=== PATIENT | male | born 1955 | race Caucasian/White ===

== ENCOUNTER → 2016-08-25 19:18 | Outpatient (CLI) | payer BC ==
[2015-11-05 08:26] VITALS: BMI 33.5
[~2016-08-25 19:18] MED LIST: ASTELIN137 MCG NS; BAYER CHEWABLE81 MG PO; CELEXA20 MG PO; CLARITIN 10 MG10 MG PO; COREG 3.1253.125 MG PO; ELIQUIS5 MG PO; GLUCOPHAGE1000 MG PO; LOPRESSOR25 MG PO; MOEXIPRIL 15 MG PO; MOEXIPRIL HCL15 M1 PO; NORCO 10/325 TA1 TA1 PO; NOVOLIN 70/30 110 ML SC; NOVOLIN 70/30 110 ML SQ; PLAVIX75 MG PO; ZOCOR40 MG PO; ZOCOR80 MG PO
== END | disposition home or self-care (01) ==
LOC: D.SLEEP 19:18
DX: G47.33 Obstructive sleep apnea (adult) (pediatric) (principal)

== ENCOUNTER 2019-10-30 16:29 | Inpatient (IN) | payer OTHER ==
[~2019-10-30] VITALS: Ht 180.3 cm; Wt 108.5 kg
--- NOTE | 2019-10-30 18:14 | NUR ---
PT REPORTS HE HAS NOT ATE IN APPROX 5 DAYS. INSULIN NOT GIVEN AT THIS, PER PATIENT.
--- NOTE | 2019-10-30 19:06 | NUR ---
REPORT TO SHERRI PERALTA
[2019-10-30 19:22] LABS: APTT 32.4 SECONDS (22.8-39.4); INR 1.1 (0.85-1.17); PROTIME 14.2 SECONDS (11.6-15.0)
[2019-10-30 19:23] LABS: D-DIMER-QUANTITATIVE 0.71 ug/mLFEU (0.20-0.54)
[2019-10-30 20:00] VITALS: BP 128/53
[2019-10-30 22:22] VITALS: BP 152/76; BMI 33.4
[2019-10-30 22:38] LABS: BILIRUBIN NEGATIVE (NEGATIVE); KETONE MODERATE mg/dL (NEGATIVE); NITRITE NEGATIVE (NEGATIVE); UROBILINOGEN NORMAL mg/dL (< 2)
--- NOTE | 2019-10-30 22:39 | NUR ---
PATIENT TO THE FLOOR, ABLE TO AMBULATE ON HIS OWN, PATIENT ON ROOM AIR, A&O X4. NO NEEDS VOICED AT THIS TIME. CALL LIGHT WITHIN REACH AND BED IN LOWEST LOCKED POSITION.
[2019-10-31 04:00] VITALS: BP 143/95
[2019-10-31 06:35] LABS: BASOPHILS 0 % (0-2); EOSINOPHILS 0 % (0-7); HEMATOCRIT 39.3 % (42.0-54.0); HEMOGLOBIN 12.6 g/dL (13.5-17.5); IMMATURE GRANULOCYTES 0.2 % (0-5); LYMPHOCYTES 6.4 % (15-50); MCHC 32.1 g/dL (31.0-37.0); MCV 93.6 fL (80.0-100.0); MEAN PLATELET VOLUME 10.5 fL (7.4-10.4); MONOCYTES 6.4 % (2-11); RDW 13.2 % (11.5-14.5); WBC 9.9 10x3/uL (4.8-10.8)
[2019-10-31 06:56] LABS: PLATELET COUNT 162 10x3/uL (130-400)
[2019-10-31 06:59] LABS: ALBUMIN 3.4 g/dL (3.4-5.0); ANION GAP 15.1 mmol/L (8-16); BILIRUBIN - TOTAL 0.84 mg/dL (0.2-1.3); CALCIUM 8.6 mg/dL (8.5-10.1); CARBON DIOXIDE 24.8 mmol/L (21.0-32.0); CREATININE - SERUM 1.6 mg/dL (0.6-1.3); POTASSIUM - SERUM 4.9 mmol/L (3.5-5.1); PROTEIN - SERUM 6.4 g/dL (6.4-8.2)
[2019-10-31 07:00] LABS: MAGNESIUM - SERUM 1.9 mg/dL (1.8-2.4)
[2019-10-31 08:09] VITALS: BP 140/63
--- NOTE | 2019-10-31 10:33 | NUR ---
I have reviewed this patient and I concur with the Shift Assessment completed by the Licensed Practical Nurse today this shift.
--- NOTE | 2019-10-31 11:22 | NUR ---
SPOKE WITH CHERIE METZGER ABOUT RESTARTING HOME MEDS AND HE STATES HE WILL LOOK AT THEM. I VERBALIZED UNDERSTANDING.
--- NOTE | 2019-10-31 11:24 | NUR ---
CHERIE METZGER STATES TO ME TO KEEP PT ON TELEMTRY FOR NOW.
[2019-10-31 11:39] VITALS: BP 141/55
[2019-10-31 11:45] LABS: C-REACTIVE PROTEIN 12.4 mg/dL (0.0-0.9)
[2019-10-31] MEDS ORDERED: LIPITOR40 MG PO (11:48)
[2019-10-31] MEDS ORDERED: CANDESARTAN PO (11:49)
[2019-10-31] MEDS ORDERED: ZYRTEC10 MG PO (11:50)
[2019-10-31] MEDS ORDERED: COREG6.25 MG PO (11:50)
[2019-10-31] MEDS ORDERED: CARDURA4 MG PO (11:50)
[2019-10-31] MEDS ORDERED: FLUTICASONE PRO16 GM NASAL (11:51)
[2019-10-31] MEDS ORDERED: CENTRUM MEN'S1 EACH PO (11:53)
[2019-10-31] MEDS ORDERED: GLIMEPIRIDE2 MG PO (11:54)
[2019-10-31 14:54] VITALS: Ht 180.3 cm; Wt 108.5 kg
--- NOTE | 2019-10-31 15:21 | NUR ---
PT ASKING ABOUT HOME MEDS BEING RESTARTED. CALLED AND SPOKE WITHCHERIE METZGER AND HE STATES HE KNOWS.
[2019-10-31 16:20] VITALS: BP 143/53
--- NOTE | 2019-10-31 19:50 | NUR ---
REPORT RECIEVED AND ROUNDING COMPLETE. PATIENT SITTING IN BED SIDE CHAIR WATCHING TV, SERGIONET ASKING TO TAKE A SHOWER, ABX ALMOST FINISHED AND PATIENT IS SET UP FOR A SHOWER. PATIENT HAS A LEFT FOREARM PATENT AND RUNNING FLUIDS PATIENT HAS ASKED FOR PIV TO BE MOVED TO ANOTHER LOCATION BECAUSE THIS PIV WONT STOP BEEPING. TOLD PATIENT THAT ONCE HE IS OUT OF THE SHOWER WE WILL LOOK AT IT. NO DISTRESS NOTED. PATIENT HAS A PRODUCTIVE COUGH WITH WHITE/CLEAR SPUTUM. PATIENT STATES HE HAS NO NEEDS AT THIS TIME. CALL LIGHT WITHIN REACH AND BED IN LOWEST LOCKED POSITION.
[2019-10-31 20:00] VITALS: BP 132/67
[2019-11-01 04:00] VITALS: BP 120/56
[2019-11-01 06:30] LABS: BASOPHILS 0 % (0-2); EOSINOPHILS 0 % (0-7); HEMATOCRIT 35.7 % (42.0-54.0); HEMOGLOBIN 11.6 g/dL (13.5-17.5); IMMATURE GRANULOCYTES 0.2 % (0-5); LYMPHOCYTES 6.4 % (15-50); MCH 29.8 pg (26.0-34.0); MCHC 32.5 g/dL (31.0-37.0); MCV 91.8 fL (80.0-100.0); MEAN PLATELET VOLUME 11.1 fL (7.4-10.4); NEUTROPHILS 86.4 % (40-80); RBC 3.89 10x6/uL (4.20-6.10); RDW 12.9 % (11.5-14.5); WBC 12.1 10x3/uL (4.8-10.8)
[2019-11-01 06:38] LABS: PLATELET COUNT 196 10x3/uL (130-400)
[2019-11-01 06:48] LABS: ALBUMIN 3.2 g/dL (3.4-5.0); ANION GAP 15.8 mmol/L (8-16); BILIRUBIN - TOTAL 0.4 mg/dL (0.2-1.3); CALCIUM 8.5 mg/dL (8.5-10.1); CARBON DIOXIDE 22.9 mmol/L (21.0-32.0); CREATININE - SERUM 1.5 mg/dL (0.6-1.3); MAGNESIUM - SERUM 1.9 mg/dL (1.8-2.4); POTASSIUM - SERUM 4.7 mmol/L (3.5-5.1)
--- NOTE | 2019-11-01 07:15 | NUR ---
RECEIVE SHIFT REPORT. RESTING IN BED WITH TV ON. DENIES ANY NEEDS AT THIS TIME. WILL CONTINUE PLAN OF CARE AND SAFETY PRECAUTIONS.
[2019-11-01 09:14] VITALS: BP 138/60
[2019-11-01] MEDS ORDERED: ZITHROMAX 500M500 MG PO (12:07)
[2019-11-01] MEDS ORDERED: DECADRON4 MG PO (12:09)
--- NOTE | 2019-11-01 14:16 | MORECARE ---
CASE MANAGEMENT DISCHARGE SUMMARY PATIENT: MINNIE VELAZQUEZ JR UNIT: [id number] ADM DATE: 10/30/19 AGE: 64 : 59 SEX: M ROOM/BED: D.2131 AUTHOR: JUANJO AVILES PHYSICIAN: REFERRING PHYSICIAN: MARIA ISABEL MESA DO DATE OF SERVICE: 11/01/19 Discharge Plan Patient Name: MINNIE VELAZQUEZ [facility] [facility] 1955 Planned Disposition: Home Anticipated Discharge Date: 11/01/19 Discharge Date: Expected LOS: 2 Initial Reviewer: [email or web address] Initial Review Date: 10/30/2019 Generated: 11/01/19 3:16 pm DCPIA - Discharge Planning Initial Assessment Updated by [email or web address]: Roddy Merritt on 11/01/19 2:16 pm * Is the patient Alert and Oriented? Yes * How many steps to enter\exit or inside your home? 3/0 * PCP Dr. Mesa * Pharmacy [facility] in [place] * Preadmission Environment Home with Family * ADLs Independent * Equipment None * Other Equipment N/A * List name and contact numbers for known caregivers / representatives who currently or will assist patient after discharge: AZALEA VELAZQUEZ - [phone] * Verbal permission to speak to the caregivers and representatives has been obtained from the patient. Yes * Community resources currently utilized None * Please name any agencies selected above. n/a * Additional services required to return to the preadmission environment? No * Can the patient safely return to the preadmission environment? Yes * Has this patient been hospitalized within the prior 30 days at any hospital? No Patient Name: MINNIE VELAZQUEZ Page [id number] at 1416 All edits/amendments must be made on the electronic document DICTATION DATE: 11/01/19 141 CAMP NURSE: HA 11/01/19 1416 RPT#: [id number] DC DATE: STATUS: ADM IN [facility] [address] [place] [address] END OF REPORT
--- NOTE | 2019-11-01 14:24 | MORECARE ---
CASE MANAGEMENT DISCHARGE SUMMARY PATIENT: MINNIE VELAZQUEZ JR UNIT: [id number] ADM DATE: 10/30/19 AGE: 64 : 59 SEX: M ROOM/BED: D.2131 AUTHOR: JUANJO AVILES PHYSICIAN: REFERRING PHYSICIAN: MARIA ISABEL MESA DO DATE OF SERVICE: 11/01/19 Discharge Plan Patient Name: MINNIE VELAZQUEZ Facility: [facility]:[place] : 1955 Planned Disposition: Home Anticipated Discharge Date: 11/01/19 Discharge Date: Expected LOS: 2 Initial Reviewer: BELLA Initial Review Date: 10/30/2019 Generated: 11/01/19 3:23 pm Comments DCP- Discharge Planning Updated by BELLA: Roddy Merritt on 11/01/19 1:[address] Patient Name: MINNIE VELAZQUEZ Admission Status: ER Accout number: [id number] Admission Date: 10-30-2019 : 1955 Admission Diagnosis:COVID-19 Attending: MARIA ISABEL MESA Current LOS: 2 Anticipated DC Date: 11-01-2019 Planned Disposition: Home Primary Insurance: [facility] Discharge Planning Comments: CM met with patient via telephone per current COVID protocols to complete initial dc planning assessment. CM educated patient on the CM role and verbal consent given by patient to complete assessment. CM verified patient's address, phone number, and emergency contact phone numbers. Patient lives at home with family and his spouse, Saima ([phone]). At discharge patient plans to return home and feels this is a safe discharge. Patient stated that he has 3 steps to navigate to enter the home and it is safe. Patient fills his medications at [facility] in [place]. CM discussed availability of home health, rehab services, and medical equipment. Patient states that the he is independent with his ADLs and has no Lower level care needs at this time. Patient refused HH, DME, SNF, and IPR. Transportation provider at discharge will be with his spouse, Saima. CM will continue to follow and will assist as needed with dc plans/needs. Cover Stitch Machine Operator: Roddy Merritt DCPIA - Discharge Planning Initial Assessment Updated by [email or web address]: Roddy Merritt on 11/01/19 2:16 pm * Is the patient Alert and Oriented? Yes * How many steps to enter\exit or inside your home? 3/0 * PCP Dr. Mesa * Pharmacy [facility] in [place] * Preadmission Environment Home with Family * ADLs Independent * Equipment None * Other Equipment N/A * List name and contact numbers for known caregivers / representatives who currently or will assist patient after discharge: SAIMA VELAZQUEZ - [phone] * Verbal permission to speak to the caregivers and representatives has been obtained from the patient. Yes * Community resources currently utilized None * Please name any agencies selected above. n/a * Additional services required to return to the preadmission environment? No * Can the patient safely return to the preadmission environment? Yes * Has this patient been hospitalized within the prior 30 days at any hospital? No Last DP export: 11/01/19 1:16 p Patient Name: MINNIE VELAZQUEZ Page [id number] at 1424 All edits/amendments must be made on the electronic document DICTATION DATE: 11/01/19 142 MANAGER CONTACT: HA 11/01/19 142 RPT#: [id number] DC DATE: STATUS: ADM IN [facility] [address] [place] [address] END OF REPORT
[2019-11-01] MEDS ORDERED: ZITHROMAX500 MG PO (14:53)
--- NOTE | 2019-11-01 15:28 | NUR ---
D/C LEFT FOREARM IV, TIP INTACT. DISCHARGE INSTRUCTIONS GIVEN VERBALLY AND HANDOUTS PROVIDED. SPOKE WITH SPOUSE WHO IS APPROX 30 MINUTES AWAY. WILL TAKE DOWN TO ED ENTRANCE VIA WHEELCHAIR UPON ARRIVAL.
--- NOTE | 2019-11-01 15:58 | NUR ---
WHEELED DOWN TO ED ENTRANCE TO MEET SPOUSE. REMAINS FREE FROM INJURY.
--- NOTE | 2019-11-02 09:39 | MORECARE ---
CASE MANAGEMENT DISCHARGE SUMMARY PATIENT: MINNIE VELAZQUEZ JR UNIT: [id number] ADM DATE: 10/30/19 AGE: 64 : 59 SEX: M ROOM/BED: D.2131 AUTHOR: JUANJO AVILES PHYSICIAN: REFERRING PHYSICIAN: MARIA ISABEL MESA DO DATE OF SERVICE: 11/02/19 Discharge Plan Patient Name: MINNIE VELAZQUEZ Facility: [facility]:[place] : 1955 Planned Disposition: Home Anticipated Discharge Date: 11/01/19 Discharge Date: 11/01/2019 Expected LOS: 2 Initial Reviewer: BELLA Initial Review Date: 10/30/2019 Generated: 11/02/19 10:39 am Comments DCP- Discharge Planning Updated by [email or web address]: Roddy Merritt on 11/01/19 1:[address] Patient Name: MINNIE VELAZQUEZ Admission Status: ER Accout number: [id number] Admission Date: 10-30-2019 : 1955 Admission Diagnosis:COVID-19 Attending: MARIA ISABEL MESA Current LOS: 2 Anticipated DC Date: 11-01-2019 Planned Disposition: Home Primary Insurance: [facility] Discharge Planning Comments: CM met with patient via telephone per current COVID protocols to complete initial dc planning assessment. CM educated patient on the CM role and verbal consent given by patient to complete assessment. CM verified patient's address, phone number, and emergency contact phone numbers. Patient lives at home with family and his spouse, Saima ([phone]). At discharge patient plans to return home and feels this is a safe discharge. Patient stated that he has 3 steps to navigate to enter the home and it is safe. Patient fills his medications at [facility] in [place]. CM discussed availability of home health, rehab services, and medical equipment. Patient states that the he is independent with his ADLs and has no Lower level care needs at this time. Patient refused HH, DME, SNF, and IPR. Transportation provider at discharge will be with his spouse, Saima. CM will continue to follow and will assist as needed with dc plans/needs. Pipeline Engineer: Roddy Merritt DCPIA - Discharge Planning Initial Assessment Updated by [email or web address]: Roddy Merritt on 11/01/19 2:16 pm * Is the patient Alert and Oriented? Yes * How many steps to enter\exit or inside your home? 3/0 * PCP Dr. Mesa * Pharmacy [facility] in [place] * Preadmission Environment Home with Family * ADLs Independent * Equipment None * Other Equipment N/A * List name and contact numbers for known caregivers / representatives who currently or will assist patient after discharge: SAIMA VELAZQUEZ - [phone] * Verbal permission to speak to the caregivers and representatives has been obtained from the patient. Yes * Community resources currently utilized None * Please name any agencies selected above. n/a * Additional services required to return to the preadmission environment? No * Can the patient safely return to the preadmission environment? Yes * Has this patient been hospitalized within the prior 30 days at any hospital? No Last DP export: 11/01/19 1:24 p Patient Name: MINNIE VELAZQUEZ Page [id number] at 0939 All edits/amendments must be made on the electronic document DICTATION DATE: 11/02/19938 NIPPING MACHINE OPERATOR: HA 11/02/19938 RPT#: [id number] DC DATE:11/01/19 STATUS: DIS IN [facility] [address] [place] [address] END OF REPORT
== END 2019-11-01 15:58 | disposition home or self-care (01) | DRG 178 ==
LOC: D.ER 16:29 → D.M2 20:58
PROVIDERS: Internal Medicine Pulmonary Disease; ADMIT Family Medicine; ATTEND Family Medicine
DX: U07.1 COVID-19 (principal); N17.9 Acute kidney failure, unspecified; I25.10 Atherosclerotic heart disease of native coronary artery without angina pectoris; E11.51 Type 2 diabetes mellitus with diabetic peripheral angiopathy without gangrene; I10 Essential (primary) hypertension; E11.65 Type 2 diabetes mellitus with hyperglycemia; E78.5 Hyperlipidemia, unspecified; F41.8 Other specified anxiety disorders; E66.01 Morbid (severe) obesity due to excess calories; Z68.33 Body mass index [BMI] 33.0-33.9, adult